=== PATIENT | female | born 1940 | race Caucasian/White ===

== ENCOUNTER 2016-11-20 08:43 | Observation (INO) | payer MEDICARE, BC ==
[~2016-11-20] VITALS: Ht 152.4 cm; Wt 65.9 kg
[~2016-11-20 08:43] MED LIST: ASPIRIN EC81 MG PO; ASPIRIN LOW DOS81 M2 PO; CALTRATE 600+D PO; CARBAMAZEPIN100 M1 PO; CIPROFLOXACN500 MG PO; LEVOTHYROXIN25 MC1 PO; LEVOTHYROXIN50 MCG; LEVOTHYROXIN50 MCG PO; LOPRESSOR 550 MG/TAB PO; METOPROL TAR25 MG PO; METRONIDAZOL500 MG PO; PRILOSEC20 MG PO; TEGRETOL XR100 MG PO; TEGRETOL200 MG PO
[2016-11-20] MEDS ORDERED: METOPROL TAR25 MG PO (08:54)
[2016-11-20] MEDS ORDERED: CHLORTHALIDONE25 MG PO (08:54)
[2016-11-20 10:18] LABS: HEMATOCRIT 43.4 % (37.0-47.0); HEMOGLOBIN 15.3 g/dl (12.0-16.0); IMMATURE GRANULOCYTES 0.4 % (0.0-1.0); MEAN CELL VOLUME 91.4 fL CALC (80.0-100.0); MEAN CORPUSCULAR HGB 32.2 pG CALC (26.0-32.0); MEAN CORPUSCULAR HGB CONC 35.3 g/L CALC (32.0-36.0); RED BLOOD COUNT 4.75 mill/uL (4.20-5.60); RED CELL DISTRI WIDTH 11.6 % (11.5-15.5)
[2016-11-20 10:30] LABS: ALBUMIN 4.7 g/dL (3.2-5.0); ALKALINE PHOSPHATASE 125 u/l (38-126); ANION GAP 16 (6-22 (CALC)); BILIRUBIN, TOTAL 0.6 mg/dL (0.0-1.4); BUN 16 mg/dL (8-23); BUN/CREATININE RATIO 19 (12-20 (CALC)); CALCIUM 9.8 mg/dL (8.4-10.2); CARBON DIOXIDE 32 mmol/l (22-30); CHLORIDE 86 mmol/l (95-108); CREATININE 0.9 mg/dL (0.5-1.0); GFR > 60 ML/MIN (>=60 (CALC)); GFR FOR AFR.AMER. > 60 ML/MIN (>=60 (CALC)); GLUCOSE 127 mg/dL (82-115); POTASSIUM 3.2 mmol/l (3.5-5.1); SGOT/AST 38 u/l (9-36); SGPT/ALT 37 u/l (11-66); SODIUM 131 mmol/l (137-146); TOTAL PROTEIN 8.8 g/dL (6.3-8.2)
[2016-11-20] MEDS ORDERED: PREDNISONE10 MG PO (10:31)
[2016-11-20] MEDS ORDERED: ZITHROMAX250 MG PO (10:31)
[2016-11-20] MEDS ORDERED: VENTOLIN HF1 IN (10:31)
[2016-11-20] MEDS ORDERED: TYLENOL # 31 TA1 PO (10:31)
[2016-11-20 10:42] LABS: MYOGLOBIN 60 ng/mL (0 - 62)
[2016-11-20 14:15] VITALS: BP 154/74
[2016-11-20 14:30] VITALS: BP 131/66
[2016-11-20 14:45] VITALS: BP 126/75
[2016-11-20] MEDS ORDERED: METOPROL TAR100 MG PO (14:53)
[2016-11-20 15:00] VITALS: BP 138/74
[2016-11-20 16:00] VITALS: BP 121/60
[2016-11-20 19:28] VITALS: BP 134/66
[2016-11-21 00:01] VITALS: BP 138/76
[2016-11-21 04:00] VITALS: BP 144/78
[2016-11-21 08:00] VITALS: BP 158/77
[2016-11-21] MEDS ORDERED: IPRATROPIU0.5 MG/3 M IN (10:04)
[2016-11-21] MEDS ORDERED: ZPAK PO (10:04)
[2016-11-21] MEDS ORDERED: PREDNISONE10 MG PO (10:04)
[2016-11-21] MEDS ORDERED: NEBULIZER COMPRESSOR (10:04)
[2016-11-21 11:00] VITALS: BP 140/64
== END 2016-11-21 11:35 | disposition home or self-care (01) ==
LOC: ENPENDDIS → ED 08:43 → ED-I 11:25 → ED 11:34 → MS2 11:35 → ICU 11:35
PROVIDERS: Emergency Medicine; ADMIT Internal Medicine; ATTEND Internal Medicine
DX: J20.9 Acute bronchitis, unspecified (principal); R55 Syncope and collapse; I10 Essential (primary) hypertension; E03.9 Hypothyroidism, unspecified; E87.6 Hypokalemia; G50.0 Trigeminal neuralgia; E87.1 Hypo-osmolality and hyponatremia; R06.02 Shortness of breath